=== PATIENT | female | born 2000 | race Caucasian/White ===

== ENCOUNTER 2024-08-23 10:03 | Emergency (ER) | payer OTHER ==
--- OUTSIDE RECORDS SUMMARY | 2024-08-23 10:05 | XMS REPORT | Continuity of Care Document ---
Author Name Unknown Address [address] [place] [address] [facility] thconnect Address [address] [place] [address] Care Team Providers Care Hvac Technician Residential Name Role Phone Unavailable Unavailable Unavailable Encounters Start Date/Time End Date/Time Encounter Type Admission Type Attending Clinicians Care Facility Care Department Encounter ID Source 2023-05-25 07:57:29 2023-05-25 07:57:29 Outpatient [facility] SFA [id number] Gonzalo Bowman 2023-05-04 08:44:02 2023-05-04 08:44:02 Outpatient [facility] SFA [id number] Gonzalo Bowman 2023-04-21 16:05:29 2023-04-21 16:05:29 Outpatient [facility]FA [id number] [id number] Gonzalo Bowman 2023-04-07 08:27:33 2023-04-07 08:27:33 Outpatient [facility] SFA [id number] Gonzalo Bowman 2023-03-15 08:48:05 2023-03-15 08:48:05 Outpatient [facility]FA [id number] [id number] Gonzalo Bowman 2023-02-23 15:41:07 2023-02-23 15:41:07 Outpatient SFA SFA [id number] Gonzalo Bowman 2023-02-15 09:26:49 2023-02-15 09:26:49 Outpatient SFA SFA [id number] Gonzalo Bowman
--- NOTE | 2024-08-23 11:42 | RAD REPORT ---
EXAMINATION: US OB Limited COMPARISON: None. HISTORY: [facility] MAIN Abd cramping, ;Vaginal bleeding Bed Name: 16 TECHNIQUE: Real-time ultrasound was performed through the pelvis. Transvaginal and transabdominal ajith roaches were performed to better visualize the intrauterine contents and adnexa. FINDINGS: No intrauterine identified. Diffuse thickening and heterogeneity of the endometrium, measur ing up to 2.8 cm in thickness, with no evidence of a localized gestational sac. No focal suspicious endometrial lesion. Heterogeneous hypoechoic material seen along the cervical canal, suggesting blood products. No evidence of a pole or cardiac pulsation. Both ovaries are visualized and appear unremarkable, apart from a right adnexal anechoic 2.8 cm cyst or dominant follicle. There is no free fluid in the cul-de-sac. Uterine length: 11.7 cm. Right ovary measures 3.5 x 3.0 x 3.1 cm. Left ovary measures 2.2 x 1.3 x 1.2 cm. IMPRESSION: No evidence of an intrauterine , with heterogeneous material present within the cervical can al, may represent blood clots or enhancing components of an . Thickening and heterogeneity of the endometrium, without focal findings to suggest retained products of conception. Continued seri al beta hCG trending recommended.
[2024-08-23 11:57] LABS: Specific Gravity 1.015 (1.005-1.030)
[2024-08-23 12:02] LABS: Absolute Lymphocytes (CBC) 2.8 K/uL (0.7-4.9); Absolute Monocytes 0.7 K/uL (0.1-1.3); Absolute Neutrophil 4.9 K/uL (1.8-8.0); Basophils % 0.3 % (0-1.3); Eosinophils % 0.5 % (0-4.4); Hematocrit 37.4 % (36.0-45.0); Hemoglobin 12.8 g/dL (12.0-15.0); Lymphocytes % 32.9 % (15.3-44.8); MCH 30.8 pg (27.0-35.0); MCHC 34.2 g/dL (32.0-36.0); MCV 89.9 fL (80-100); MPV 9.1 fL (7.6-11.3); Monocytes % 8.2 % (3.3-12.3); Neutrophils % 58.1 % (41.7-73.7); Nucleated Red Blood Cells % 0.1 % (0-0); Platelets 236 thou/uL (152-406); RBC Red Blood Cell Count 4.16 M/uL (3.86-4.86); Red Cell Distribution Width 13.1 % (12.1-15.2)
[2024-08-23 12:21] LABS: Anion Gap 7.3 mEq/L (5.0-15.0); Potassium 3.3 mEq/L (3.5-5.1)
[2024-08-23 12:56] LABS: Urine Bilirubin NEGATIVE (Negative); Urine Blood 3+ (Negative); Urine Clarity Clear (Clear); Urine Color Yellow (Yellow); Urine Glucose Negative (Negative); Urine Ketones Negative (Negative); Urine Nitrite Negative (Negative); Urine Protein Negative (Negative)
[2024-08-23 13:24] LABS: Sqamous Epithelial <5 /HPF (None Seen); Urine Bacteria None Seen /HPF (<20); Urine Crystals Unidentified Few /HPF (None Seen); Urine Culture Reflex Order NOT NEEDED; Urine Microscopic Reflex YN ORDER UMIC; Urine Mucus Slight /HPF (None Seen); Urine RBC >50 /HPF (None Seen); Urine WBC <5 /HPF (<5); Urine Yeast (Budding) Trace /HPF (None Seen)
--- NOTE | 2024-08-23 14:08 | ER ---
Nurse's Notes [facility] Name: Aliza Mace Age: 24 yrs Sex: Female : 2000 Arrival Date: 08/23/2024 Time: 10:03 Bed 16 Private MD: Diagnosis: Abnormal uterine and vaginal bleeding, unspecified;Threatened Presentation: 08/23 10:23 Chief complaint: Patient states: I am pretty sure I miscarried last night. I am 9 weeks tm6 with twins, and yesterday between 4pm and 1am I started to have intense abdominal and vaginal pain with a lot of vaginal bleeding. I am still bleeding, but only very lightly. Coronavirus screen: Client denies travel out of the [place] in the last 14 days. Ebola Screen: Patient negative for fever greater than or equal to 101.5 degrees Fahrenheit, and additional compatible Ebola Virus Disease symptoms Patient denies exposure to infectious person. Patient denies travel to an Ebola-affected area in the 21 days before illness onset. No symptoms or risks identified at this time. Initial Sepsis Screen: Does the patient meet any 2 criteria? No. Patient's initial sepsis screen is negative. Does the patient have a suspected source of infection? No. Patient's initial sepsis screen is negative. Risk Assessment: Do you want to hurt yourself or someone else? Patient reports no desire to harm self or others. Onset of symptoms was August 22, 2024 at 16:00. 10:23 Method Of Arrival: Ambulatory tm6 14:05 Acuity: LINDA 3 me1 Triage Assessment: 10:25 General: Appears in no apparent distress. Behavior is calm, cooperative. EENT: No signs tm6 and/or symptoms were reported regarding the EENT system. Neuro: Level of Consciousness is awake, alert, obeys commands, Oriented to person, place, time, situation. Cardiovascular: Patient's skin is warm and dry. Respiratory: Airway is patent Respiratory effort is even, unlabored, Respiratory pattern is regular, symmetrical. GI: No signs and/or symptoms were reported involving the gastrointestinal system. Abdomen is round non-distended. : Reports vaginal bleeding that is light flow, spotty. Derm: No signs and/or symptoms reported regarding the dermatologic system. Musculoskeletal: No signs and/or symptoms reported regarding the musculoskeletal system. 10:30 Pain: Complains of pain in pelvis Pain currently is 2 out of 10 on a pain scale. tm6 Quality of pain is described as crampy. : Reports cramping, suprapubic area. 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 - Infectious Disease History:: Denies. - Social history:: Smoking status: Patient reports the use of cigarette tobacco products, denies chronic smoking, but will smoke occasionally. - Family history:: not pertinent. - Hospitalizations: : No recent hospitalization is reported. Screenin:31 [facility] ED Fall Risk Assessment (Adult) History of falling in the last 3 months, tm6 including since admission No falls in past 3 months (0 pts) Confusion or Disorientation No (0 pts) Intoxicated or Sedated No (0 pts) Impaired Gait No (0 pts) Mobility Assist Device Used No (0 pt) Altered Elimination No (0 pt) Score/Fall Risk Level 0 - 2 = Low Risk Oriented to surroundings, Maintained a safe environment, Educated pt \T\ family on fall prevention, incl call for assistance when getting out of bed. Abuse screen: Denies threats or abuse. Denies injuries from another. Nutritional screening: No deficits noted. Tuberculosis screening: No symptoms or risk factors identified. Assessment: 10:31 Reassessment: see triage assessment. tm6 12:47 General: Appears comfortable, obese, well groomed, well developed, Behavior is calm, me1 cooperative, appropriate for age, Reports I am pretty sure I miscarried last night. I am 9 weeks with twins, and yesterday between 4pm and 1am I started to have intense abdominal and vaginal pain with a lot of vaginal bleeding. I am still bleeding, but only very lightly. Pain: Complains of pain in pelvis Pain does not radiate. Pain currently is 3 out of 10 on a pain scale. Quality of pain is described as crampy, Pain began suddenly, 1 day ago. Is continuous. Neuro: Level of Consciousness is awake, alert, obeys commands, Oriented to person, place, time, situation, Appropriate for age. Cardiovascular: Patient's skin is warm and dry. Respiratory: Airway is patent Trachea midline Respiratory effort is even, unlabored, Respiratory pattern is regular, symmetrical. GI: No signs and/or symptoms were reported involving the gastrointestinal system. : Reports vaginal bleeding that is light flow, since yesterday. EENT: No signs and/or symptoms were reported regarding the EENT system. Derm: Skin is intact, is healthy with good turgor, Skin is pink, warm \T\ dry. Musculoskeletal: No signs and/or symptoms reported regarding the musculoskeletal system. Vital Signs: 10:23 BP 131 / 97; Pulse 95; Resp 18; Temp 98(O); Pulse Ox 100% on R/A; MAP 108 mmHg; Weight tm6 115.67 kg; Height 5 ft. 4 in. ; Pain 0/10; 11:00 BP 137 / 83; Pulse 80; Resp 15; Pulse Ox 99% ; me1 12:00 BP 119 / 80; Pulse 82; Resp 16; Pulse Ox 99% ; me1 13:00 BP 129 / 76; Pulse 86; Resp 16; Pulse Ox 100% ; me1 13:45 BP 126 / 70; Pulse 93; Resp 16; Temp 98.3; Pulse Ox 99% ; me1 10:23 Body Mass Index 43.77 (115.67 kg, 162.56 cm) tm6 10:23 Pain Scale: Adult tm6 ED Course: 10:07 Patient arrived in ED. ra3 10:11 Mauricio Salazar MD is Attending Physician. rn 10:23 Lolis Acharya RN is Primary Nurse. tm6 10:25 Arm band placed on right wrist. tm6 10:31 Patient has correct armband on for positive identification. Bed in low position. Call tm6 light in reach. Side rails up X 1. Provided Education on: use of call henson. Client placed on continuous cardiac and pulse oximetry monitoring. NIBP monitoring applied. Pulse ox on. NIBP on. Door closed. Noise minimized. Warm blanket given. Pillow given. 11:16 US OB Limited In Process Unspecified. EDMS 11:47 Initial lab(s) drawn, by me, sent to lab. Urine collected: clean catch specimen, me1 cloudy. Inserted saline lock: 22 gauge in left hand, using aseptic technique. 11:47 Urinalysis w/ reflexes Sent. me1 11:47 Quantitative Hcg Sent. me1 11:47 Test, Urine Sent. me1 11:47 CBC with Diff Sent. me1 11:47 Basic Metabolic Panel Sent. me1 11:47 Abo/rh Typing Sent. me1 13:22 Abo/rh Typing Sent. me1 14:05 Triage completed. me1 14:05 No provider procedures requiring assistance completed. me1 14:13 IV discontinued, intact, bleeding controlled, No redness/swelling at site. Pressure me1 dressing applied. Administered Medications: No medications were administered Medication: 10:31 VIS not applicable for this client. tm6 Outcome: 14:07 Discharge ordered by . rn 14:13 Discharged to home ambulatory, ms1 14:13 Condition: stable 14:13 Discharge instructions given to patient, Instructed on discharge instructions, follow up and referral plans. Demonstrated understanding of instructions, follow-up care, 14:13 Patient left the ED. ms1 Signatures: Dispatcher [employer] EDMS Mauricio Salazar MD MD rn Eddleman, Michelle, RN RN ms1 Lolis Acharya RN RN 6 Chloe Stearns 3 Corrections: (The following items were deleted from the chart) 12:47 10:23 Chief complaint: Patient states: I am pretty sure I miscarried last night. I am 9 me1 weeks with twins, and yesterday between 4pm and 1am I started to have intense abdominal and vaginal pain with a lot of vaginal bleeding. I am still bleeding, but only very lightly. tm6
--- NOTE | 2024-08-23 14:08 | EDPHYS ---
Physician Documentation [facility] Name: Aliza Mace Age: 24 yrs Sex: Female : 2000 Arrival Date: 08/23/2024 Time: 10:03 Bed 16 Private MD: ED Physician Mauricio Salazar HPI: 08/23 11:55 This 24 yrs old Female presents to ER via Ambulatory with complaints of Vaginal rn Bleeding. 11:55 The patient presents with vaginal bleeding that is moderate, with clots. Onset: The rn symptoms/episode began/occurred 2 day(s) ago. Modifying factors: The symptoms are alleviated by nothing, the symptoms are aggravated by nothing. Associated signs and symptoms: Pertinent positives: vaginal bleeding, Pertinent negatives: fever, urinary frequency, vaginal discharge. Severity of symptoms: At their worst the symptoms were moderate, in the emergency department the symptoms have improved. The patient has not experienced similar symptoms in the past. Patient is -0-1-1 who presents at approximately 8 to 10 weeks gestation with vaginal bleeding and lower abdominal cramping. Reports previous ultrasound that showed cardiac activity early on about 3 weeks ago. No trauma. Does not know her blood type.. 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 - Infectious Disease History:: Denies. - Social history:: Smoking status: Patient reports the use of cigarette tobacco products, denies chronic smoking, but will smoke occasionally. - Family history:: not pertinent. - Hospitalizations: : No recent hospitalization is reported. ROS: 11:55 Constitutional: Negative for fever, chills, and weight loss, Cardiovascular: Negative rn for chest pain, palpitations, and edema, Respiratory: Negative for shortness of breath, cough, wheezing, and pleuritic chest pain, Abdomen/GI: Positive for abdominal cramping : Positive for vaginal bleeding that was heavy yesterday and improved today Exam: 11:55 Constitutional: This is a well developed, well nourished patient who is awake, alert, rn and in no acute distress. Cardiovascular: Regular rate and rhythm. No pulse deficits. Respiratory: No increased work of breathing, no retractions or nasal flaring. Abdomen/GI: Soft, nontender Vital Signs: 10:23 BP 131 / 97; Pulse 95; Resp 18; Temp 98(O); Pulse Ox 100% on R/A; MAP 108 mmHg; Weight tm6 115.67 kg; Height 5 ft. 4 in. ; Pain 0/10; 11:00 BP 137 / 83; Pulse 80; Resp 15; Pulse Ox 99% ; me1 12:00 BP 119 / 80; Pulse 82; Resp 16; Pulse Ox 99% ; me1 13:00 BP 129 / 76; Pulse 86; Resp 16; Pulse Ox 100% ; me1 13:45 BP 126 / 70; Pulse 93; Resp 16; Temp 98.3; Pulse Ox 99% ; me1 10:23 Body Mass Index 43.77 (115.67 kg, 162.56 cm) tm6 10:23 Pain Scale: Adult tm6 MDM: 10:12 Medical Screening Exam initiated rn 14:03 Differential diagnosis: urinary tract infection. Data reviewed: vital signs, nurses rn notes, lab test result(s), radiologic studies, ultrasound, and as a result, I will discharge patient. Counseling: I had a detailed discussion with the patient and/or guardian regarding the historical points, exam findings, and any diagnostic results supporting the discharge/admit diagnosis, lab results, radiology results, the need for outpatient follow up, to return to the emergency department if symptoms worsen or persist or if there are any questions or concerns that arise at home. Special discussion: I discussed with the patient/guardian in detail that at this point there is no indication for admission to the hospital. It is understood, however, that if the symptoms persist or worsen the patient needs to return immediately for re-evaluation. Based on the history and exam findings, there is no indication for further emergent testing or inpatient evaluation. I discussed with the patient/guardian the need to see the OB Gyne specialist for further evaluation of the symptoms. ED course: No intrauterine identified at this time. Beta-hCG is 44,000. Patient states previous ultrasound showed cardiac activity so probable miscarriage. Patient has follow-up with her OB doctor. Return precautions given and understood. Rh+, does not need RhoGAM.. 08/23 10:28 Order name: Abo/rh Typing; Complete Time: 14:03 rn 08/23 10:28 Order name: Basic Metabolic Panel; Complete Time: 13:00 rn 08/23 10:28 Order name: CBC with Diff; Complete Time: 13:00 rn 08/23 10:28 Order name: Test, Urine; Complete Time: 13:00 rn 08/23 10:28 Order name: Quantitative Hcg; Complete Time: 13:00 rn 08/23 10:28 Order name: Urinalysis w/ reflexes; Complete Time: 13:42 rn 08/23 10:28 Order name: US OB Limited; Complete Time: 11:43 rn 08/23 10:28 Order name: IV Saline Lock; Complete Time: 11:47 rn 08/23 10:28 Order name: Labs collected and sent; Complete Time: 11:47 rn 08/23 10:28 Order name: NPO; Complete Time: 10:49 rn 08/23 12:14 Order name: Labs - recollect needed: recollect RH in small lavender/ DO NOT reband eb hemolyzed per lab; Complete Time: 13:22 Administered Medications: No medications were administered Disposition Summary: 08/23/24 14:07 Discharge Ordered Notes: Location: Home rn Problem: new rn Symptoms: have improved rn Condition: Stable rn Diagnosis - Abnormal uterine and vaginal bleeding, unspecified rn - Threatened rn Followup: rn - With: Private Physician - When: As needed - Reason: Recheck today's complaints, Re-evaluation by your physician Discharge Instructions: - Discharge Summary Sheet rn - Abnormal Uterine Bleeding rn - Threatened Miscarriage rn - Vaginal Bleeding During , First Trimester rn Forms: - Medication Reconciliation Form rn - Antibiotic insole lip turner - Prescription Opioid Use rn - Patient Portal Instructions rn - Leadership Thank You Letter rn Signatures: Dispatcher [employer] Mauricio Owen MD MD rn Botello, Elizabeth eb Masterson, Tawney RN RN tm6
[2024-08-23 14:38] VITALS: BP 126/70; TEMP 98.3; O2SAT 99
== END 2024-08-23 14:13 | disposition home or self-care (01) ==
LOC: ER 10:03
DX: O20.0 Threatened abortion (principal)
CPT/HCPCS: 36415; 76815; 80048; 81001; 81025; 84702; 85025; 86900; 86901; 99284